=== PATIENT | female | born 1970 | race African-American/Black ===

== ENCOUNTER 2016-10-28 19:16 | Emergency (ER) | payer MEDICAID, OTHER ==
[~2016-10-28] VITALS: Ht 165.1 cm; Wt 63.5 kg
[2016-10-28 19:20] VITALS: BP 117/80
[2016-10-28 20:02] LABS: Basophils # (auto) 0 uL; Basophils % (auto) 0.2 % (0.0-2.0); CONDITION Y; DEFINITIVE SEE PRINTOUT; Eosinophils # (auto) 0 uL; Eosinophils % (auto) 0.3 % (0.0-7.0); Hematocrit 21.7 % (36.0-46.0); Hemoglobin 7.4 g/dL (12.2-16.2); Lymphocytes % (auto) 22.1 % (10.0-50.0); Mean Corpuscular Hemoglobin 29.6 pg (28.0-32.0); Mean Corpuscular Volume 87.3 fL (80.0-100.0); Mean Platelet Volume 7.1 fL (7.4-10.4); Monocytes # (auto) 0.3 uL; Monocytes % (auto) 7.3 % (0.0-12.0); Neutrophils # (auto) 3.1 uL; Neutrophils % (auto) 70.1 % (37.0-80.0); Platelet Count (auto) 385 10^3/uL (140-450); Red Cell Distribution Width 18.8 % (11.6-16.0); White Blood Cell 4.4 10^3/uL (4.4-10.8)
[2016-10-28 20:25] LABS: Albumin 1.2 g/dL (3.4-5.0); BUN/Creatinine Ratio 24.1; Calcium 6.6 mg/dL (8.5-10.1); Potassium 3.9 mmol/L (3.5-5.1)
[2016-10-28 20:32] LABS: Bilirubin, Total 0.2 mg/dL (0.2-1.0); Total Protein 5.7 g/dL (6.4-8.2)
== END 2016-10-29 01:43 | disposition left against medical advice (07) ==
LOC: EDBD 19:16 → EDSEX 19:16 → ER 19:19
DX: R21 Rash and other nonspecific skin eruption (principal); Z53.21 Procedure and treatment not carried out due to patient leaving prior to being seen by health care provider
CPT/HCPCS: 36415; 80053; 83605; 85025; 87040

== ENCOUNTER 2016-11-09 16:12 | Emergency (ER) | payer OTHER ==
[~2016-11-09] VITALS: Ht 170.2 cm; Wt 63.5 kg
[2016-11-09 16:30] VITALS: BP 120/77
== END 2016-11-10 05:57 | disposition left against medical advice (07) ==
LOC: ER 16:12 → EDBD 16:12 → ER 11-10 05:57
DX: R10.32 Left lower quadrant pain (principal); Z53.21 Procedure and treatment not carried out due to patient leaving prior to being seen by health care provider

== ENCOUNTER 2016-11-11 13:39 | Emergency (ER) | payer OTHER ==
[~2016-11-11] VITALS: Ht 167.6 cm; Wt 63.5 kg
[2016-11-11 14:47] VITALS: BP 127/74
[2016-11-11] MEDS ORDERED: cefTRIAXone SOD 1,000 MG VL IM ONE (15:00)
== END 2016-11-11 15:20 | disposition home or self-care (01) ==
LOC: ER 13:41
DX: B37.9 Candidiasis, unspecified (principal); B99.8 Other infectious disease; Z88.6 Allergy status to analgesic agent
CPT/HCPCS: 96372; 99283; J0696

== ENCOUNTER 2017-07-21 21:33 | Emergency (ER) | payer MEDICAID, OTHER ==
[~2017-07-21] VITALS: Ht 167.6 cm; Wt 63.5 kg
[2017-07-21 21:40] VITALS: BP 155/93
[2017-07-21 22:39] LABS: Hematocrit 14.9 % (36.0-46.0); Mean Corpuscular Hemoglobin 38.1 pg (28.0-32.0); Mean Corpuscular Hgb Conc. 33.6 g/dL (32.0-36.0); Mean Corpuscular Volume 113.2 fL (80.0-100.0); Platelet Count (auto) 183 10^3/uL (140-450); Red Blood Cells 1.32 10^6/uL (4.0-5.20); White Blood Cell 7.5 10^3/uL (4.4-10.8)
[2017-07-21 22:43] LABS: Red Cell Distribution Width 27.8 % (11.8-14.3)
[2017-07-21 22:47] LABS: Alanine Aminotransferase 15 U/L (13-56); Albumin 1.2 g/dL (3.4-5.0); Amylase 89 U/L (25-115); Anion Gap 6 (5-15); Aspartate Aminotransferase 21 U/L (15-37); BUN/Creatinine Ratio 21.2; Blood Urea Nitrogen 31 mg/dL (7-18); Calcium 6.9 mg/dL (8.5-10.1); Carbon Dioxide 24 mmol/L (21-32); Chloride 111 mmol/L (98-107); GFR African American 50 mL/min; GFR Non-African American 41 mL/min; Glucose 96 mg/dL (74-106); Lipase 147 U/L (73-393); Sodium 141 mmol/L (136-145)
[2017-07-21 22:49] LABS: Basophils % (manual) 0 (0.0-2.0); Blast Cells 0; Metamyelocytes % 0; Myelocytes % 0; Promyelocytes % 0; Reactive Lymphocytes 0
[2017-07-21 22:50] LABS: Acetaminophen 4.6 ug/mL (10-30); Alkaline Phosphatase 76 U/L (45-117); Bilirubin, Total 0.4 mg/dL (0.2-1.0); Salicylate < 1.7 mg/dL (2.8-20.0); Total Protein 5.4 g/dL (6.4-8.2)
[2017-07-21 23:27] LABS: Band Neutrophils % (manual) 4; Eosinophils % (manual) 2 (0-7); Lymphocytes % (manual) 22 (10.0-50.0); Monocytes % (manual) 4 (0-12)
[2017-07-22 00:21] LABS: Urine Bacteria FEW /hpf (None Seen); Urine Blood 2+ /uL (Negative); Urine Specific Gravity 1.012 (1.001-1.035); Urine WBC 9 /hpf (0 - 5)
[2017-07-22 00:33] LABS: Alcohol, Urine < 3.0 mg/dL (0-5); Amphetamine Screen, Urine NEGATIVE (NEGATIVE); Barbiturate Scree,Urine NEGATIVE (NEGATIVE); Benzodiazephine Screen, Urine NEGATIVE (NEGATIVE); Cannabinoid Screen, Urine NEGATIVE (NEGATIVE); Cocaine Screen, Urine NEGATIVE (NEGATIVE); Opiate Scree,Urine NEGATIVE (NEGATIVE); Phencyclidine Screen, Urine NEGATIVE (NEGATIVE)
== END 2017-07-22 00:42 | disposition home or self-care (01) ==
LOC: EDBD 21:33 → ER 21:34
DX: F20.9 Schizophrenia, unspecified (principal); F10.10 Alcohol abuse, uncomplicated
CPT/HCPCS: 36415; 80053; 80307; 80329; 81001; 82150; 83690; 84484; 84702; 85007; 85027

== ENCOUNTER 2017-08-23 16:51 | Emergency (ER) | payer MEDICAID ==
[~2017-08-23] VITALS: Ht 167.6 cm; Wt 65.8 kg
[2017-08-23 21:41] VITALS: BP 122/56
[2017-08-23 22:05] LABS: Hematocrit 7.9 % (36.0-46.0); Mean Corpuscular Hemoglobin 45.5 pg (28.0-32.0); Mean Corpuscular Hgb Conc. 35.2 g/dL (32.0-36.0); Mean Corpuscular Volume 129.2 fL (80.0-100.0); Platelet Count (auto) 193 10^3/uL (140-450); Red Blood Cells 0.61 10^6/uL (4.0-5.20); White Blood Cell 10.4 10^3/uL (4.4-10.8)
[2017-08-23 22:17] LABS: Albumin 1.4 g/dL (3.4-5.0); BUN/Creatinine Ratio 20.3; Calcium 6.9 mg/dL (8.5-10.1); Potassium 4.4 mmol/L (3.5-5.1)
[2017-08-23 22:28] LABS: Hemoglobin 2.8 g/dL (12.2-16.2); Red Cell Distribution Width 31.3 % (11.8-14.3)
[2017-08-23 22:29] LABS: Blast Cells 0; Promyelocytes % 0; Reactive Lymphocytes 0
[2017-08-23 23:53] LABS: Band Neutrophils % (manual) 8; Basophils % (manual) 1 (0.0-2.0); Eosinophils % (manual) 3 (0-7); Lymphocytes % (manual) 19 (10.0-50.0); Metamyelocytes % 4; Monocytes % (manual) 5 (0-12); Myelocytes % 6
== END 2017-08-23 23:17 | disposition home or self-care (01) ==
LOC: ER 16:55
DX: D64.9 Anemia, unspecified (principal); R11.2 Nausea with vomiting, unspecified; Z88.8 Allergy status to other drugs, medicaments and biological substances
CPT/HCPCS: 36415; 74176; 80053; 83690; 85007; 85027

== ENCOUNTER 2017-08-24 05:49 | Emergency (ER) | payer MEDICAID ==
[~2017-08-24] VITALS: Ht 167.6 cm; Wt 68.0 kg
[2017-08-24 06:05] VITALS: BP 115/52
== END 2017-08-24 06:23 | disposition left against medical advice (07) ==
LOC: ER 05:51
DX: D64.9 Anemia, unspecified (principal); Z53.21 Procedure and treatment not carried out due to patient leaving prior to being seen by health care provider

== ENCOUNTER 2017-09-30 07:49 | Emergency (ER) | payer MEDICAID ==
[~2017-09-30] VITALS: Ht 165.1 cm; Wt 68.0 kg
[2017-09-30 08:14] VITALS: BP 150/88
[2017-09-30] MEDS ORDERED: SODIUM CHLORIDE 0.9% 1,000 ML IV ONE (08:47)
[2017-09-30] MEDS ORDERED: SODIUM CHLORIDE 0.9% 1,000 ML IVB ONE (08:47)
[2017-09-30] MEDS ORDERED: ONDANSETRON HCL 4 MG/2 ML VIAL IV ONE (09:00)
== END 2017-09-30 10:31 | disposition left against medical advice (07) ==
LOC: EDBD 07:49 → ER 07:49
DX: R11.2 Nausea with vomiting, unspecified (principal); F17.210 Nicotine dependence, cigarettes, uncomplicated; F15.10 Other stimulant abuse, uncomplicated; Z59.0 Homelessness; Z88.8 Allergy status to other drugs, medicaments and biological substances; Z53.29 Procedure and treatment not carried out because of patient's decision for other reasons

== ENCOUNTER 2017-10-01 03:33 | Inpatient (IN) | payer MEDICAID ==
[~2017-10-01] VITALS: Ht 165.1 cm; Wt 74.1 kg
[2017-10-01 06:44] LABS: Hematocrit 13.3 % (36.0-46.0); Mean Corpuscular Hemoglobin 40.1 pg (28.0-32.0); Mean Corpuscular Hgb Conc. 34.6 g/dL (32.0-36.0); Mean Corpuscular Volume 116.1 fL (80.0-100.0); Platelet Count (auto) 123 10^3/uL (140-450); Red Blood Cells 1.14 10^6/uL (4.0-5.20); White Blood Cell 9.7 10^3/uL (4.4-10.8)
[2017-10-01 06:46] LABS: Red Cell Distribution Width 25.4 % (11.8-14.3)
[2017-10-01 06:49] LABS: Hemoglobin 4.6 g/dL (12.2-16.2)
[2017-10-01 06:50] LABS: Basophils % (manual) 0 (0.0-2.0); Blast Cells 0; Metamyelocytes % 0; Myelocytes % 0; Promyelocytes % 0; Reactive Lymphocytes 0
[2017-10-01 07:20] LABS: Albumin 1.3 g/dL (3.4-5.0); Bilirubin, Total 1.4 mg/dL (0.2-1.0); Calcium 7.3 mg/dL (8.5-10.1); Potassium 4.2 mmol/L (3.5-5.1); Total Protein 5.6 g/dL (6.4-8.2)
[2017-10-01 07:29] LABS: Band Neutrophils % (manual) 3; Eosinophils % (manual) 2 (0-7); Lymphocytes % (manual) 14 (10.0-50.0); Monocytes % (manual) 14 (0-12)
[2017-10-01] MEDS ORDERED: SODIUM CHLORIDE 0.9% 1,000 ML IV ONE (07:31)
[2017-10-01] MEDS ORDERED: ALBUMIN 25% 100 ML IV ONE (07:45)
[2017-10-01 08:42] LABS: Urine Bacteria NONE SEEN /hpf (None Seen); Urine Blood 2+ /uL (Negative); Urine Specific Gravity 1.012 (1.001-1.035); Urine WBC 4 /hpf (0 - 5)
[2017-10-01 08:44] LABS: INR 1.08 (0.9-1.15); Partial Thromboplastin Time 25.8 sec (23.78-33.04); Prothrombin Time 11.5 sec (9.27-12.13)
[2017-10-01 08:58] LABS: Alcohol, Urine < 3.0 mg/dL (0-5); Amphetamine Screen, Urine NEGATIVE (NEGATIVE); Barbiturate Scree,Urine NEGATIVE (NEGATIVE); Benzodiazephine Screen, Urine NEGATIVE (NEGATIVE); Cannabinoid Screen, Urine NEGATIVE (NEGATIVE); Cocaine Screen, Urine NEGATIVE (NEGATIVE); Opiate Scree,Urine NEGATIVE (NEGATIVE); Phencyclidine Screen, Urine NEGATIVE (NEGATIVE)
[2017-10-01] MEDS ORDERED: POTASSIUM CHL 10 Meq TABLET PO ONE (13:00)
[2017-10-01] MEDS ORDERED: FUROSEMIDE 40 MG/4 ML VIAL IV ONE (13:00)
[2017-10-01] MEDS ORDERED: ACETAMINOPHEN 325 MG TAB PO PRN (13:15)
[2017-10-01] MEDS ORDERED: cefTRIAXone 1GM/10ml IVPUSH 10 ML IV ONE (13:15)
[2017-10-01] MEDS ORDERED: NITROGLYCERIN 0.4 MG SL TAB SL PRN (13:15)
[2017-10-01] MEDS ORDERED: VANCOMYCIN PER PHARMACY 0 MG IV SCH (13:15)
[2017-10-01] MEDS ORDERED: HYDROcodone-ACET 5/325MG TAB PO PRN (13:15)
[2017-10-01] MEDS ORDERED: TEMAZEPAM 15 MG CAP PO PRN (13:15)
[2017-10-01] MEDS ORDERED: ONDANSETRON HCL 4 MG/2 ML VIAL IV PRN (13:15)
[2017-10-01] MEDS ORDERED: MORPHINE SULF INJ 2 MG/ML SYRINGE 1ML IV PRN ×2 (13:15)
[2017-10-01] MEDS: SODIUM CHLORIDE 0.9% 1,000 ML IV SCH (15:30)
[2017-10-01] MEDS: VANCOMYCIN 1GM/250ML 250 ML IV SCH (15:30)
[2017-10-01 17:00] VITALS: BP 135/76
[2017-10-01] MEDS: BOOST PLUS 8 ounce PO SCH ×2 (18:00→22:00)
[2017-10-01 18:48] LABS: Hemoglobin 4.5 g/dL (12.2-16.2)
[2017-10-01 20:00] VITALS: BP 123/110
[2017-10-01 22:09] VITALS: BP_SYST 121; BP_SYST 123; BP_DIAS 71; BP_DIAS 72
[2017-10-02] VITALS (13 sets, daily range): BP systolic 120–156; BP diastolic 76–96
[2017-10-02] MEDS: SODIUM CHLORIDE 0.9% 1,000 ML IV SCH ×2 (05:46→22:56)
[2017-10-02 07:38] LABS: Basophils # (auto) 0.1 uL; Eosinophils # (auto) 0.1 uL; Neutrophils # (auto) 8.9 uL; White Blood Cell 11.5 10^3/uL (4.4-10.8)
[2017-10-02 07:39] LABS: Basophils % (auto) 0.8 % (0.0-2.0); Eosinophils % (auto) 0.7 % (0.0-7.0); Hematocrit 12.1 % (36.0-46.0); Lymphocytes # (auto) 1.7 uL; Lymphocytes % (auto) 14.6 % (10.0-50.0); Mean Corpuscular Hemoglobin 39.5 pg (28.0-32.0); Mean Corpuscular Volume 119.7 fL (80.0-100.0); Monocytes # (auto) 0.8 uL; Monocytes % (auto) 6.8 % (0.0-12.0); Neutrophils % (auto) 77.1 % (37.0-80.0); Nucleated Red Blood Cells % 1.3 %; Platelet Count (auto) 134 10^3/uL (140-450); Red Blood Cells 1.01 10^6/uL (4.0-5.20)
[2017-10-02 07:52] LABS: Red Cell Distribution Width 25.5 % (11.8-14.3)
[2017-10-02] MEDS: BOOST PLUS 8 ounce PO SCH ×4 (08:00→22:55)
[2017-10-02 08:09] LABS: Albumin 1.4 g/dL (3.4-5.0); BUN/Creatinine Ratio 29.5; Bilirubin, Total 1.1 mg/dL (0.2-1.0); Calcium 7.1 mg/dL (8.5-10.1); Potassium 4.6 mmol/L (3.5-5.1); Total Protein 5.4 g/dL (6.4-8.2)
[2017-10-02] MEDS ORDERED: EPOETIN ALFA 10,000 UNIT/1 ML VIAL SC ONE (08:45)
[2017-10-02] MEDS ORDERED: cefTRIAXone 1GM/10ml IVPUSH 10 ML IV SCH (09:00)
[2017-10-02] MEDS: MAGNESIUM SULFATE 1GM/100ML 100 ML IV SCH ×2 (09:34→11:18)
[2017-10-02] MEDS: CARVEDILOL 3.125 MG TAB PO SCH ×2 (09:34→22:55)
[2017-10-02] MEDS: FUROSEMIDE 40 MG/4 ML VIAL IV SCH ×2 (09:46→18:25)
[2017-10-02] MEDS ORDERED: POTASSIUM CHL 10 Meq TABLET PO SCH (10:00)
[2017-10-02] MEDS ORDERED: THIAMINE 100mg/ml INJ (200mg/2ml VIAL) IV SCH (10:00)
[2017-10-02] MEDS ORDERED: FAMOTIDINE 20 MG TAB PO SCH (10:00)
[2017-10-02] MEDS ORDERED: risperiDONE 1 MG TAB PO SCH (10:00)
[2017-10-02] MEDS ORDERED: FUROSEMIDE 40 MG/4 ML VIAL IV SCH (10:00)
[2017-10-02] MEDS ORDERED: MULTIPLE VITAMIN TAB PO SCH (10:00)
[2017-10-02] MEDS: VANCOMYCIN 1GM/250ML 250 ML IV SCH (13:39)
[2017-10-02] MEDS: CYANOCOBALAMIN (B-12) 1000 MCG/1 ML VIAL SUBCUT ONE ×2 (15:00→15:21)
[2017-10-02] MEDS ORDERED: FOLIC ACID 1 MG TAB PO SCH (15:04)
[2017-10-03 01:10] VITALS: BP 147/87
[2017-10-03 01:20] VITALS: BP 151/85
[2017-10-03 04:15] VITALS: BP 143/86
[2017-10-03 04:54] VITALS: BP 143/86
[2017-10-03] MEDS: FUROSEMIDE 40 MG/4 ML VIAL IV SCH (06:00)
[2017-10-03] MEDS: BOOST PLUS 8 ounce PO SCH (06:00)
[2017-10-03 08:38] VITALS: BP 142/92
== END 2017-10-03 09:15 | disposition left against medical advice (07) | DRG 194 ==
LOC: ER 03:33 → EDBD 03:33 → TELE 03:34 → TELE-CENTR 15:07
PROVIDERS: ADMIT Internal Medicine; ATTEND Internal Medicine
PROC: 30233N1 Transfusion of Nonautologous Red Blood Cells into Peripheral Vein, Percutaneous Approach (ICD-10-PCS; principal; 2017-10-02)
DX: I50.43 Acute on chronic combined systolic (congestive) and diastolic (congestive) heart failure (principal); E43 Unspecified severe protein-calorie malnutrition; D69.6 Thrombocytopenia, unspecified; I31.3 Pericardial effusion (noninflammatory); N13.1 Hydronephrosis with ureteral stricture, not elsewhere classified; E83.51 Hypocalcemia; N18.3 Chronic kidney disease, stage 3 (moderate); F20.9 Schizophrenia, unspecified; J98.11 Atelectasis; K80.20 Calculus of gallbladder without cholecystitis without obstruction; D75.89 Other specified diseases of blood and blood-forming organs; D64.9 Anemia, unspecified; R79.89 Other specified abnormal findings of blood chemistry; R19.7 Diarrhea, unspecified; E03.9 Hypothyroidism, unspecified; F12.90 Cannabis use, unspecified, uncomplicated; F17.210 Nicotine dependence, cigarettes, uncomplicated; N32.89 Other specified disorders of bladder; R32 Unspecified urinary incontinence; R31.29 Other microscopic hematuria; Z53.29 Procedure and treatment not carried out because of patient's decision for other reasons; Z53.21 Procedure and treatment not carried out due to patient leaving prior to being seen by health care provider; Z59.0 Homelessness; Z91.19 Patient's noncompliance with other medical treatment and regimen; Z88.1 Allergy status to other antibiotic agents; Z86.14 Personal history of Methicillin resistant Staphylococcus aureus infection; Z68.27 Body mass index [BMI] 27.0-27.9, adult
CPT/HCPCS: 36415; 71045; 74176; 76775; 80053; 80307; 81001; 82150; 83021; 83605; 83690; 83735; 83880; 84443; 84484; 85007; 85014; 85018; 85025; 85027; 85610; 85660; 85730; 86850; 86870; 86880; 86900; 86901; 86920; 86922; 86970; 86971; 86978; 87040; 87081; 87086; 93306; 96374; 96375; J0885; P9047

== ENCOUNTER 2019-05-01 20:17 | Emergency (ER) | payer MEDICAID ==
[~2019-05-01] VITALS: Ht 167.6 cm; Wt 72.6 kg
[~2019-05-01 20:17] MED LIST: AML5T PO; HYDR-2691 PO; MET25T PO
[2019-05-01] MEDS ORDERED: SODIUM CHLORIDE 0.9% 1,000 ML IVB ONE (21:11)
[2019-05-01] MEDS ORDERED: LORazepam 2MG/ML-1ML VIAL IM ONE (21:15)
[2019-05-01] MEDS ORDERED: ONDANSETRON ODT 4 MG TAB PO ONE (21:15)
[2019-05-01] MEDS ORDERED: ACETAMINOPHEN 325 MG TAB PO ONE (21:15)
[2019-05-01] MEDS ORDERED: LEVETIRACETAM INJ 1,000 MG in D5W 5% 100 ML IV ONE (23:00)
[2019-05-02 03:28] VITALS: BP 114/68
[2019-05-02] MEDS ORDERED: LEVETIRACETAM 500 MG TAB PO ONE ×2 (06:45→07:00)
== END 2019-05-02 07:02 | disposition home or self-care (01) ==
LOC: EDBD 20:17 → ER 20:19
DX: S00.531A Contusion of lip, initial encounter (principal); R56.9 Unspecified convulsions; I12.0 Hypertensive chronic kidney disease with stage 5 chronic kidney disease or end stage renal disease; N18.6 End stage renal disease; Z99.2 Dependence on renal dialysis; X58.XXXA Exposure to other specified factors, initial encounter; Y93.89 Activity, other specified; Y92.89 Other specified places as the place of occurrence of the external cause; Y99.8 Other external cause status
CPT/HCPCS: 70450; 71045; 96372; 99284; J1953; J2060; J7060; Q0162

== ENCOUNTER 2019-05-10 20:35 | Inpatient (IN) | payer MEDICAID ==
[~2019-05-10] VITALS: Ht 165.1 cm; Wt 59.1 kg
[2019-05-10 21:08] LABS: Basophils # (auto) 0 uL; Basophils % (auto) 0.7 % (0.0-2.0); Eosinophils # (auto) 0.2 uL; Eosinophils % (auto) 2.7 % (0.0-7.0); Hematocrit 27.5 % (36.0-46.0); Hemoglobin 9.2 g/dL (12.2-16.2); Lymphocytes # (auto) 1.7 uL; Mean Corpuscular Hemoglobin 29.4 pg (28.0-32.0); Mean Corpuscular Hgb Conc. 33.4 g/dL (32.0-36.0); Mean Corpuscular Volume 87.9 fL (80.0-100.0); Monocytes # (auto) 0.4 uL; Monocytes % (auto) 6.6 % (0.0-12.0); Neutrophils # (auto) 3.9 uL; Nucleated Red Blood Cells % 0.1 %; Platelet Count (auto) 250 10^3/uL (140-450); Red Blood Cells 3.13 10^6/uL (4.0-5.20); Red Cell Distribution Width 15.9 % (11.8-14.3); White Blood Cell 6.2 10^3/uL (4.4-10.8)
[2019-05-10 21:30] LABS: Albumin 2.8 g/dL (3.4-5.0); Calcium 7.1 mg/dL (8.5-10.1); Potassium 5.4 mmol/L (3.5-5.1)
[2019-05-10 21:35] LABS: BUN/Creatinine Ratio 7.7; Bilirubin, Total 0.4 mg/dL (0.2-1.0); Total Protein 8.2 g/dL (6.4-8.2)
[2019-05-11] MEDS ORDERED: QUEtiapine FUMARATE 100 MG TAB PO ONE (04:15)
[2019-05-11] MEDS ORDERED: cloNIDine HCL 0.1 MG TAB PO ONE (04:45)
[2019-05-11] MEDS ORDERED: ENOXAPARIN SOD 100 MG/1 ML SYRINGE SC ONE (06:15)
[2019-05-11] MEDS ORDERED: TEMAZEPAM 15 MG CAP PO PRN (06:15)
[2019-05-11] MEDS ORDERED: SODIUM ZIRCONIUM CYCL 10 GM PAK PO ONE (06:15)
[2019-05-11] MEDS ORDERED: ONDANSETRON HCL 4 MG/2 ML VIAL IV PRN (06:15)
[2019-05-11] MEDS ORDERED: MORPHINE SULF INJ 2 MG/ML SYRINGE 1ML IV PRN (06:45)
[2019-05-11] MEDS ORDERED: NITROGLYCERIN 0.4 MG SL TAB SL PRN (06:45)
--- NOTE | 2019-05-11 07:54 | NUR ---
Telemetry admit from ER ROBE VALLADARES admitted to Telemetry unit after SBAR received. Patient oriented to OSCAR CASTILLO RN primary RN, unit, room, bed, and unit policies regarding patient care and visiting hours. Patient now on continuous telemetry monitoring, tele box #[id number]. Patient weighed by bedscale and encouraged to call if they need something. All questions and concerns addressed, patient refuses to answer questions of acknowledge RN.
[2019-05-11 08:59] VITALS: BP 153/102
--- NOTE | 2019-05-11 09:20 | NUR ---
Refusing Admission Patient has been refusing to answer questions or allow assessment. Patient will not keep eyes open. When eyes are open, patient will not respond to questions.
--- NOTE | 2019-05-11 09:30 | NUR ---
Refusing Assessment Refusing assessment at this time. Attempted to educate patient. Patient refuses to acknowledge education. Keeping eyes closed.
[2019-05-11] MEDS ORDERED: SODIUM CHL 0.9% 1000 ML BAG XX ONE (10:00)
[2019-05-11] MEDS ORDERED: amLODIPine BESYLATE 5 MG TAB PO SCH (10:00)
[2019-05-11] MEDS ORDERED: NIFEdipine ER 30 MG TAB PO SCH (10:00)
[2019-05-11] MEDS ORDERED: PANTOPRAZOLE 40 MG TAB PO SCH (10:00)
[2019-05-11] MEDS ORDERED: ASPirin 81 mg TAB PO SCH (10:00)
--- NOTE | 2019-05-11 10:00 | NUR ---
Refusing IV access Informed patient that IV access needs to be obtained in order to administer medications and in case of emergency. Patient refuses to let this RN obtain IV access.
--- NOTE | 2019-05-11 10:05 | NUR ---
Reassessment of Blood Pressure Patient's blood pressure was high during initial assessment vitals. Reassessment blood pressure at this time. Blood pressure is currently 165/100, with a pulse of 84. Patient is currently resting in bed with eyes closed. Notified dialysis nurse of patient's blood pressure. Nurse is aware and will start dialysis within the next hour to hour and a half.
--- NOTE | 2019-05-11 11:42 | NUR ---
Refusing MRSA swab Patient will not allow this RN to swab for MRSA at this time.
[2019-05-11] MEDS: CALCIUM ACETATE 667 MG CAP PO SCH ×3 (12:00→18:00)
[2019-05-11 13:00] VITALS: BP 166/123
--- NOTE | 2019-05-11 15:00 | NUR ---
Dialysis Complete Notified by EL Alfaro, that was covering for lunch that patient ended dialysis early. Per EL Alfaro, Dialysis was able to remove 2.4L before patient began to complain and requesting that dialysis be stopped.
[2019-05-11] MEDS: hydrALAZINE HCL 25 MG TAB PO SCH ×2 (15:50→21:14)
[2019-05-11] MEDS: METOPROLOL TARTRATE 25 MG TAB PO SCH ×2 (15:54→21:14)
--- NOTE | 2019-05-11 16:00 | NUR ---
Cardiology Consult Dr. Quinones at bedside at this time see patient. Patient has refused echocardiogram and placement of IVs for stress test. Dr. Quinones at this time has cleared patient for discharge from a cardiac standpoint. Patient will need to follow up as an outpatient.
[2019-05-11 17:00] VITALS: BP 176/117
--- NOTE | 2019-05-11 17:45 | NUR ---
Refusing Tele Monitor Patient has been refusing to wear tele monitor for approximately the last hour. Tele monitor techs aware.
--- NOTE | 2019-05-11 18:21 | NUR ---
Page to Dr. Giselle Munoz Page to Dr. Giselle Munoz. Patient is upset. Patient is calling 911 on her bedside phone. Patient states, "You're trying to set me up. You didn't think I would wake up, huh?" Gave patient some crackers at this time in hopes to calm her down. Awaiting callback from Dr. Munoz.
--- NOTE | 2019-05-11 18:49 | NUR ---
Call from Dr. Munoz Call from Dr. Munoz at this time. Patient now has diet ordered. aware of high blood pressure. to come in and see patient soon.
--- NOTE | 2019-05-11 19:15 | NUR ---
Telepsych Telepsych report placed in chart.
--- NOTE | 2019-05-11 19:33 | NUR ---
Closing Shift Note Patient sitting up in bed eating late dinner tray. No distress noted. Report given. Will endorse care to the steward/stewardess night RN.
--- NOTE | 2019-05-11 19:49 | NUR ---
Received patient lying in bed, eyes closed. When patient asked that her blood pressure needs to be checked patient just refused, tried to ask again but patient adamantly refused. Left patient in bed, call bird with in reach, bed in low position.
[2019-05-11] MEDS ORDERED: EPOETIN ALFA 10,000 UNIT/1 ML VIAL SC ONE (21:00)
[2019-05-11] MEDS ORDERED: AMLO5TAB15 (21:15)
[2019-05-11] MEDS ORDERED: amLODIPine BESYLATE 5 MG TAB PO ONE (21:15)
[2019-05-11 21:49] VITALS: BP 178/103
[2019-05-11] MEDS: risperiDONE 1 MG TAB PO SCH (22:03)
--- NOTE | 2019-05-11 22:04 | NUR ---
PATIENT REFUSED MEDICATIONS. DR. PITTS NOTIFIED. CALLED PATIENT'S SON ANTIONETTE AND NOTIFIED OF PATIENT'S BEHAVIOR REFUSING MEDICATIONS. PATIENT SPOKE WITH SON FOR A FEW MINUTES. MEDICATIONS OFFERED AFTER BUT PATIENT SAID "NO". AFTER 30 MINUTES PATIENT IS ASKING FOR MEDICATION FOR EAR ACHE, GIVEN ALL PO MEDICATIONS INCLUDING PREVIOUSLY REFUSED MEDS AND SHE JUST TOOK THEM ALL.
--- NOTE | 2019-05-11 22:25 | NUR ---
PATIENT C/O SOB AND EARACHE, EXPLAINED THE MEDICATIONS WILL TAKE TIME TO TAKE EFFECT. 02 2L VIA N/C APPLIED, PATIENT TRYING TO REFUSED BUT APPLIED DUE TO C/O OF SOB. LEFT LYING IN BED WITH 02 VIA N/C IN PLACE.
--- NOTE | 2019-05-11 22:25 | NUR ---
PATIENT REFUSED BLOOD DRAW.
--- NOTE | 2019-05-11 22:37 | NUR ---
ACETAMINOPHEN GIVEN FOR EARACHE, PATIENT TOOK MEDICATION.
[2019-05-11] MEDS: ACETAMINOPHEN 325 MG TAB PO PRN (22:39)
[2019-05-12] MEDS: hydrALAZINE HCL 25 MG TAB PO SCH ×4 (06:00→22:00)
--- NOTE | 2019-05-12 06:54 | NUR ---
PATIENT CONTINUES TO REFUSE BLOOD DRAW, VITAL SIGNS AND MEDICATIONS. DIFFICULT TO MANAGE.
--- NOTE | 2019-05-12 07:30 | NUR ---
Opening Shift Note Assuming care of patient at this time. Patient is resting in bed with eyes closed. Patient shows no signs or symptoms of distress. Patient currently receiving 2L of oxygen via nasal cannula. Bed is locked and lowered with side rails up x2. Will instruct patient on the plan of care for today and to call for assistance as needed, once patient is awake and alert. Call light within reach. Will continue to round hourly and as needed.
[2019-05-12] MEDS: CALCIUM ACETATE 667 MG CAP PO SCH ×3 (08:00→17:51)
--- NOTE | 2019-05-12 08:11 | NUR ---
Refusing Vital Signs Patient has refused vital signs. After education on the need to reassess patient, patient states, "leave me alone."
[2019-05-12] MEDS: METOPROLOL TARTRATE 25 MG TAB PO SCH ×2 (10:00→22:00)
[2019-05-12] MEDS: ASPirin 81 mg TAB PO SCH (10:00)
[2019-05-12] MEDS: PANTOPRAZOLE 40 MG/10 ML VIAL INJ IV SCH (10:00)
[2019-05-12] MEDS: amLODIPine BESYLATE 5 MG TAB PO SCH (10:00)
--- NOTE | 2019-05-12 10:33 | NUR ---
Patient in Hallway Informed by CANDIS Leyva RN, that was patient was screaming in the hallway saying she was short of breath. Gordon RN, put oxygen on patient at that time. When this RN entered the room, patient states she is feeling better with the oxygen on. However, patient complained that she has been feeling short of breath for most of the night. Asked patient at this time if we can assess her vitals. Patient replies, "No." Informed patient that we cannot give her medication or treat her without assessing her vitals signs. Patient replies, "I don't want any medication." Informed patient that she will not feel better and her health will no improve without the appropriate treatment and medications. Then asked patient if this RN can assess her vitals. Patient pauses with no reply. Asked patient if she was thinking about it. Patient replies, "Yeah." Asked patient again if we can check her vitals signs. Patient responds, "yeah." Will check vitals signs and administer medication if patient continues to be cooperative with care.
--- NOTE | 2019-05-12 12:45 | NUR ---
Refusing Medications Patient is continuing to refuse medications at this time despite education. Patient continuous to be resistive to care and apprehensive towards treatment.
[2019-05-12] MEDS: risperiDONE 1 MG TAB PO SCH ×2 (13:04→22:00)
--- NOTE | 2019-05-12 15:20 | NUR ---
Call light Answered patient's call light at this time. Patient is requesting to have double lumen dialysis catheter removed. Informed patient that the catheter is her access for dialysis. Patient states, "No it's not." Informed patient that the access was used for yesterday's dialysis. Patient states, "I didn't have dialysis yesterday." Informed patient that she did in fact have dialysis yesterday. Patient states, "I don't get dialysis. I've never had dialysis." Patient then asked to speak with her son. Will attempt to contact Antoni son.
--- NOTE | 2019-05-12 15:39 | NUR ---
Call to Son This RN called son, Antoni, at this time per patient's request to speak with him. Transferred the call to the patient's room. Patient overheard saying, "They set me up at the hospital."
--- NOTE | 2019-05-12 17:00 | NUR ---
Patient Behavior Patient has been continuing to scream out to the hallway whenever someone passes by. Patient has been frequently requesting and receiving apple juices. Patient is also requesting cheeseburgers and double cheeseburgers, which are not available at this time.
--- NOTE | 2019-05-12 17:30 | NUR ---
Security Call/Patient's Behavior Patient was screaming for a nurse in the hallway. This RN entered the room. Patient states, she needs to use the bathroom. Oriented patient to bathroom located in her room that she has been independently using. Patient states that she needs help to get to the bathroom. Asked patient to put down telephone and cord so that this RN could assist her to bathroom. Patient states that she has to take the cord with her. Informed patient that she could not take phone cord with her due to phone being attached to wall. Patient begins to hold phone in an upward motion, in an attempt to strike this RN. Patient states, "Here. Take it!" Asked patient to place phone on the bed. Patient throws phone on bed and begins walking towards this RN. Patient is now in this RN's face and walking towards her as this RN is walking backwards to exit room. Now in hallway, patient continues to walk in this RN's face, and states, "You scared?" Informed patient that the bathroom is in the room and patient turns around and goes into the room. At this time security was called due to patient's threatening behavior. Patient walks into bathroom briefly, turns sink on and off, and goes back to the bed in the room. Patient then puts on jacket and shoes. Patient then begins to exit room. Asked patient where she was going and she replied, "Home." Asked patient how she planned on getting home, and she replied, "Can you call a cab? " Asked patient to step back into her room. Patient turns around and sits on bed. Security arrives and is informed of the situation. Call to charge rn at this time to notify of need for sitter. Security remains standby for safety.
--- NOTE | 2019-05-12 19:14 | NUR ---
Closing Note Patient sitting on bed. No distress noted. Sitter at bedside for safety. Report given. Will endorse care to the shift engineer RN.
--- NOTE | 2019-05-12 20:13 | NUR ---
PATIENT WANTS TO LEAVE. DR. PITTS TALKED TO PATIENT. PATIENT SPOKE WITH SON. PATIENT STILL CONTINUES TO REFUSE MEDICATIONS AND ANY OTHER TREATMENT. NEW ORDER RECEIVED FOR TELE PSYCH EVAL FOR CAPACITY TO MAKE DECISIONS.
[2019-05-13] MEDS: ACETAMINOPHEN 325 MG TAB PO PRN (04:15)
[2019-05-13] MEDS: hydrALAZINE HCL 25 MG TAB PO SCH ×3 (06:00→21:21)
[2019-05-13] MEDS: CALCIUM ACETATE 667 MG CAP PO SCH ×3 (08:00→18:00)
[2019-05-13] MEDS: PANTOPRAZOLE 40 MG/10 ML VIAL INJ IV SCH (10:00)
[2019-05-13] MEDS: ASPirin 81 mg TAB PO SCH (10:00)
[2019-05-13] MEDS: risperiDONE 1 MG TAB PO SCH ×2 (11:48→21:19)
[2019-05-13] MEDS: METOPROLOL TARTRATE 25 MG TAB PO SCH ×2 (11:53→21:21)
[2019-05-13] MEDS: amLODIPine BESYLATE 5 MG TAB PO SCH (11:54)
[2019-05-13 13:00] VITALS: BP 188/112
--- NOTE | 2019-05-13 15:00 | NUR ---
ATTEMPTED TELE PSYCH. PT REFUSED TO COOPERATE. NEW REPORT RECEIVED STATING THAT PT IS NOT CAPABLE OF MAKING OWN DECISIONS. WILL UPDATE MD DURING ROUNDS.
[2019-05-13] MEDS ORDERED: SODIUM CHL 0.9% 1000 ML BAG XX ONE (16:00)
[2019-05-13 17:00] VITALS: BP 168/110
--- NOTE | 2019-05-13 18:00 | NUR ---
PT REFUSED LAB DRAWS THROUGHOUT SHIFT
--- NOTE | 2019-05-13 18:30 | NUR ---
PT REFUSED DIALYSIS TREATMENT.
--- NOTE | 2019-05-13 20:19 | NUR ---
RECEIVED PATIENT RESTING IN BED, EYES CLOSED, NO S/SX OF DISTRESS NOTED. SITTER AT BEDSIDE. CALL WILD WITH IN REACH. BED IN LOW POSITION.
[2019-05-13] MEDS ORDERED: LORazepam 2MG/ML-1ML VIAL IM ONE (21:00)
[2019-05-13] MEDS ORDERED: hydrALAZINE HCL 20 MG/ML VL IV PRN (21:00)
[2019-05-13] MEDS ORDERED: EPOETIN ALFA 10,000 UNIT/1 ML VIAL SC ONE (21:00)
[2019-05-13] MEDS ORDERED: diphenhdrAMINE HCL 50 MG/1 ML VL IM ONE (21:00)
[2019-05-13 22:24] LABS: Basophils # (auto) 0 uL; Eosinophils # (auto) 0.1 uL; Eosinophils % (auto) 2.2 % (0.0-7.0); Hematocrit 23.2 % (36.0-46.0); Hemoglobin 7.9 g/dL (12.2-16.2); Lymphocytes # (auto) 1.2 uL; Lymphocytes % (auto) 24.1 % (10.0-50.0); Mean Corpuscular Hemoglobin 29.9 pg (28.0-32.0); Mean Corpuscular Volume 87.9 fL (80.0-100.0); Monocytes # (auto) 0.5 uL; Monocytes % (auto) 10.7 % (0.0-12.0); Platelet Count (auto) 192 10^3/uL (140-450); Red Blood Cells 2.64 10^6/uL (4.0-5.20); Red Cell Distribution Width 15.8 % (11.8-14.3); White Blood Cell 4.8 10^3/uL (4.4-10.8)
[2019-05-13 22:49] LABS: Potassium 7.6 mmol/L (3.5-5.1)
[2019-05-13] MEDS ORDERED: ALBUTEROL SULF 2.5 MG/0.5ML(0.5%) NEB SOLN ONE (23:04)
--- NOTE | 2019-05-13 23:17 | NUR ---
CALLED [facility] TO REPORT ABNORMAL LABS.
[2019-05-14] VITALS (41 sets, daily range): BP systolic 93–187; BP diastolic 63–101
--- NOTE | 2019-05-14 00:30 | NUR ---
CALLED REPORT TO [facility] UTILITY SYSTEM OPERATOR.
--- NOTE | 2019-05-14 00:40 | NUR ---
TRANSFERRED TO ICU VIA GURNEY, TO UNIT AT 0040. PT ALERT AND ORIENTED X2. PUPILS REACTIVE, MOVES ALL EXTREMITIES, TALKING IN CLEAR TONE. RESPIRATIONS EVEN AND UNLABORED ON ROOM AIR, LUNG SOUNDS CLEAR/ DIMINISHED. ST ON SEPTIC CLEANER. BOWEL SOUNDS PRESENT. SKIN INTACT. BED IN LOWEST LOCKED POSITION. EDUCATED PT WET MILLING WHEEL OPERATOR LIGHT, VERBALIZED UNDERSTANDING. SITTER AT BEDSIDE. NO PAIN AT THIS TIME. WILL CONTINUE TO MONITOR VITAL SIGNS STABLE.
--- NOTE | 2019-05-14 00:45 | NUR ---
UNABLE TO PLACE IV ACCESS, PATIENT HARD STICK. WILL TRANSFER PATIENT TO ICU.
--- NOTE | 2019-05-14 00:46 | NUR ---
PATIENT TRANSFERRED TO ICU VIA BED WITH BELONGINGS. PATIENT NOW ALERT AND COOPERATIVE.
[2019-05-14] MEDS ORDERED: LORazepam 2MG/ML-1ML VIAL IV PRN (01:00)
[2019-05-14] MEDS ORDERED: CALCIUM GLUC 4.65meq/50ml D5AE 50 ML IV ONE (01:00)
[2019-05-14] MEDS ORDERED: InsuLIN REG 1unit/0.01ml Soln (100units/ml) IV ONE (01:00)
[2019-05-14] MEDS ORDERED: DEXTROSE (50%) 50ML SYRG IV ONE (01:00)
[2019-05-14] MEDS ORDERED: ALBUTEROL SULF 2.5 MG/0.5ML(0.5%) NEB SOLN NEB ONE ×2 (01:00→06:30)
--- NOTE | 2019-05-14 01:00 | NUR ---
IV INSERTION IV insertion IV access obtained, via sterile technique by inserting 20 gauge catheter at LEFT SHOULDER after 2 attempts. IV secured properly. No trauma to site. Patient tolerated procedure well. CARRYING OUT ORDERS FOR IV MEDICATIONS. VITAL SIGNS STABLE.
--- NOTE | 2019-05-14 02:38 | NUR ---
PT RESTING IN BED EYES CLOSED, VITAL SIGNS STABLE. STAFF MEMBER AT BEDSIDE. WILL CONTINUE TO MONITOR.
--- NOTE | 2019-05-14 04:35 | NUR ---
AGITATION PT CONFUSED AND AGITATED, TRYING TO SIT UP AT EDGE OF BED SAYING, "I NEED TO GRAB MY GROCERIES, IN MY APARTMENT." REORIENTED TO PLACE AND TIME. PT SITTING IN HIGH FOWLERS POSITION COMFORTABLY. BED IN LOWEST LOCKED POSITION, PT EDUCATED NOT TO GET OUT OF BED WITHOUT ASSISTANCE. FALL PRECAUTIONS AND SAFETY MEASURES IN PLACE. SITTER AT BEDSIDE. VITAL SIGNS STABLE. WILL CONTINUE TO MONITOR
--- NOTE | 2019-05-14 06:11 | NUR ---
NEURO STATUS PT ALERT AND ORIENTED TO PLACE AND SITUATION. ALLOWING BLOOD DRAW AND MEDICATIONS AT THIS TIME. PT CALM AND RELAXED IN BED, WATCHING TV. SAFETY PRECAUTIONS IN PLACE. VITAL SIGNS STABLE WILL CONTINUE TO MONITOR.
[2019-05-14 06:18] LABS: Basophils # (auto) 0 uL; Basophils % (auto) 0.8 % (0.0-2.0); Eosinophils # (auto) 0 uL; Eosinophils % (auto) 0.9 % (0.0-7.0); Hematocrit 25.8 % (36.0-46.0); Hemoglobin 8.6 g/dL (12.2-16.2); Lymphocytes # (auto) 0.4 uL; Lymphocytes % (auto) 10.8 % (10.0-50.0); Mean Corpuscular Hemoglobin 29.7 pg (28.0-32.0); Mean Corpuscular Hgb Conc. 33.1 g/dL (32.0-36.0); Mean Corpuscular Volume 89.6 fL (80.0-100.0); Monocytes # (auto) 0.2 uL; Monocytes % (auto) 5.6 % (0.0-12.0); Neutrophils # (auto) 3.4 uL; Neutrophils % (auto) 81.9 % (37.0-80.0); Platelet Count (auto) 171 10^3/uL (140-450); Red Blood Cells 2.88 10^6/uL (4.0-5.20); Red Cell Distribution Width 15.9 % (11.8-14.3); White Blood Cell 4.1 10^3/uL (4.4-10.8)
[2019-05-14] MEDS: hydrALAZINE HCL 25 MG TAB PO SCH ×3 (06:21→19:57)
[2019-05-14] MEDS ORDERED: SODIUM ZIRCONIUM CYCL 10 GM PAK PO ONE (06:30)
--- NOTE | 2019-05-14 06:30 | NUR ---
CALL FROM EQUIPMENT SERVICE ASSOCIATE EN ROUTE TO DO DIALYSIS. ETA 10 MIN.
[2019-05-14 06:50] LABS: BUN/Creatinine Ratio 8.2; Calcium 7.4 mg/dL (8.5-10.1)
--- NOTE | 2019-05-14 06:50 | NUR ---
FILENET ADMIN AT BEDSIDE
[2019-05-14 06:56] LABS: Potassium 7.1 mmol/L (3.5-5.1)
--- NOTE | 2019-05-14 07:00 | NUR ---
CALL FROM DR. COYLE UPDATED ON PT STATUS AND AWARE OF DIALYSIS NURSE AT BEDSIDE. NO NEW ORDERS AT THIS TIME.
--- NOTE | 2019-05-14 07:20 | NUR ---
REPORT REPORT RECEIVED FROM MASON RNNASIMA. BEDSIDE CHECK DONE. HEMODIALYSIS IN PROGRESS . CONTINUE TO MONITOR.
--- NOTE | 2019-05-14 07:20 | NUR ---
EDGAR WAS HELD BY MASON RN, PER REPORT, PT HAD RECENTLY RECEIVED A PO MED.
[2019-05-14] MEDS: CALCIUM ACETATE 667 MG CAP PO SCH ×3 (08:00→18:00)
--- NOTE | 2019-05-14 08:25 | NUR ---
ASSESSMENT PT LAYING IN BED , BUNDLED UP UNDER THE BLANKETS, ASLEEP. VSS. HEMODIALYSIS IN PROGRESS, STARTED AT 0710, PER HDX RN. LUNGS CLEAR THROUGHOUT. ABD SOFT WITH + BOWEL SOUNDS. NO VOID OR BM AT THIS TIME. PALPABLE PULSES TO ALL EXTREMITIES WITH NO EDEMA NOTED. UNABLE TO CHECK SKIN TO BACK AND BOTTOM WILL NOT TURN PT DURING HER HDX. CONTINUE TO MONITOR.
--- NOTE | 2019-05-14 08:25 | NUR ---
PT REFUSES TO WEAR SCDS Addendum: 05/14/19 at 1239 by Lucy Cordero RN Amended: Links added.
--- NOTE | 2019-05-14 08:30 | NUR ---
MD VISIT PT SEEN BY DR COYLE. HE SPOKE WITH THE HDX RN AT THE BEDSIDE. PT STABLE AT THIS TIME.
--- NOTE | 2019-05-14 08:30 | NUR ---
PT TEACHING PT ANNE KNOX FOR EFFECTIVE PT TEACHING. Addendum: 05/14/19 at 1541 by Lucy Cordero RN Amended: Links added.
--- NOTE | 2019-05-14 10:10 | NUR ---
HEMODIALYSIS COMPLETED AND 2 LITERS REMOVED. BP OF 93/65. SCHEDULED MEDS FOR NOW INCLUDING BP MEDS . WILL HOLD AT THIS TIME AND WILL ADMINISTER BP WARRANTS. PT STILL GROGGY. WILL NOT WEAR MASK FOR BREATHING TREATMENTS SO IT IS PROPPED UP NEXT TO HER FACE ON A PILLOW. CONTINUE TO MONITOR. WILL TURN SOON SHE IS DISCONNECTED FROM HDX MACHINE.
--- NOTE | 2019-05-14 10:30 | NUR ---
ATTEMPTED TO OBTAIN PT'S WEIGHT S/P HDX AND BED SCALE NOT FUNCTIONING PROPERLY. UNABLE TO OBTAIN AN ACCURATE WEIGHT.
--- NOTE | 2019-05-14 11:00 | NUR ---
PT ALLOWED US TO SCOOT HER UP IN BED BUT REFUSED ALL MEDS.
[2019-05-14] MEDS: ASPirin 81 mg TAB PO SCH ×2 (11:04→19:56)
[2019-05-14] MEDS: METOPROLOL TARTRATE 25 MG TAB PO SCH ×2 (11:04→19:57)
[2019-05-14] MEDS: PANTOPRAZOLE 40 MG/10 ML VIAL INJ IV SCH (11:04)
[2019-05-14] MEDS: risperiDONE 1 MG TAB PO SCH ×2 (11:05→19:57)
[2019-05-14] MEDS: amLODIPine BESYLATE 5 MG TAB PO SCH ×2 (11:05→19:56)
--- NOTE | 2019-05-14 11:22 | NUR ---
CALLED DR Ana Paula PITTS AND LEFT A MESSAGE INQUIRING CLARIFICATION OF HIGHER LEVEL OF CARE ORDER FOR ELSI, HISTORICAL MANUSCRIPTS CURATOR, AND ALSO IF PT CAN BE DOWNGRADED.
--- NOTE | 2019-05-14 11:58 | NUR ---
SPOKE WITH DR Ana Paula PITTS, BY PHONE, AND HE WANTS TO RECHECK THE PT'S CBC AND BMP BEFORE DECIDING ABOUT A DOWNGRADE. ORDERS PLACED. HE CLARIFIED THE TRANSFER FOR HIGHER LEVEL OF CARE ORDER STATING THAT THE PT NEEDS A FACILITY THAT OFFERS BOTH MEDICAL AND PSYCH CARE. CALLED ELSI LEONARD, FLOOR REFINISHER, TO NOTIFY. LEFT HER A VOICE MESSAGE.
--- NOTE | 2019-05-14 12:10 | NUR ---
PT REFUSING ASSESSMENT. Addendum: 05/14/19 at 1535 by Lucy Cordero RN Amended: Links added.
[2019-05-14 12:21] LABS: Basophils # (auto) 0 uL; Eosinophils # (auto) 0 uL; Lymphocytes # (auto) 0.9 uL; Monocytes # (auto) 0.2 uL
[2019-05-14 12:23] LABS: Basophils % (auto) 0.8 % (0.0-2.0); Eosinophils % (auto) 0.9 % (0.0-7.0); Hematocrit 25.4 % (36.0-46.0); Hemoglobin 8.1 g/dL (12.2-16.2); Lymphocytes % (auto) 28.8 % (10.0-50.0); Mean Corpuscular Hemoglobin 29.6 pg (28.0-32.0); Mean Corpuscular Hgb Conc. 31.7 g/dL (32.0-36.0); Mean Corpuscular Volume 93.2 fL (80.0-100.0); Monocytes % (auto) 6.3 % (0.0-12.0); Neutrophils % (auto) 63.2 % (37.0-80.0); Nucleated Red Blood Cells % 0.1 %; Platelet Count (auto) 191 10^3/uL (140-450); Red Blood Cells 2.73 10^6/uL (4.0-5.20); Red Cell Distribution Width 16.1 % (11.8-14.3); White Blood Cell 3.1 10^3/uL (4.4-10.8)
[2019-05-14 12:52] LABS: BUN/Creatinine Ratio 6.7; Calcium 7.7 mg/dL (8.5-10.1); Potassium 4.2 mmol/L (3.5-5.1)
--- NOTE | 2019-05-14 14:00 | NUR ---
PT REFUSES ASSESSMENT. Addendum: 05/14/19 at 1535 by Lucy Cordero RN Amended: Links added.
--- NOTE | 2019-05-14 14:30 | NUR ---
PT REFUSING TO WEAR BP CUFF.
--- NOTE | 2019-05-14 15:28 | NUR ---
Assessment and SS consult Pt is a 49 yr old alert and oriented but very drowsy female. SS consult given for "SW to assist with placement after d/c, pt needs assisted living with nursing suport per psychiatric recommendations. "[facility]. Pt's mother, Ashtyn, is emergency contact on file at [phone]. Pt stated that she is independent with ADL and no DME used.. SW has previously talked with pt's son, Antoni, who stated that pt has schizophrenia and has been refusing to take her medications and go to dialysis. Pt is a pt at [facility] and has medical transportation set up but pt refuses often to go with them. Pt's nurse stated that pt is currently refusing tx but did get dialysis here at the hospital. Pt's son has stated that he talks with his mom frequently to assist in medication and dialysis tx compliance but it hasn't been working recently. Further needs will be assessed closer to d/c. Addendum: 05/14/19 at 1537 by AISHA KUO Amended: Links added.
--- NOTE | 2019-05-14 16:19 | NUR ---
I spoke with Dr. Munoz regarding the plan of care for this patient and his request for transfer to higher level of care. Per Dr. Munoz he states patient needs to be placed in a facility that can address both her dialysis and psychiatric needs. I let him know that for psych placement patient needs 5150 application done. He is going to re-order tele psych consult. I also let him know that there are limited facilities that will accept a psych patient on dialysis.
--- NOTE | 2019-05-14 16:45 | NUR ---
PT MORE WAKE AND ALERT THAN SHE HAS BEEN ALL DAY. PT STATING SHE WANTS TO GO HOME. I LET HER KNOW THAT SHE IS MOVING OUT OF THE ICU TO A REGULAR ROOM AND WE ARE JUST WAITING FOR THE BED ASSIGNMENT. SHE WANTS TO TALK TO HER MD ABOUT GOING HOME. I DID LET HER KNOW THAT DR PITTS WILL BE COMING IN, BUT THAT I'M NOT SURE WHAT TIME. SHE STATES SHE IS HUNGRY. I WILL GET HER A SANDWICH. WENT TO TURN HER IN BED AND FOUND OUT THAT SHE HAD HAD A BM. PERICARE GIVEN AND PARTIAL LINEN CHANGE DONE. RAILS UP AND BED ALARM ON FOR PT SAFETY.
--- NOTE | 2019-05-14 17:09 | NUR ---
PT TO TRANSFER TO ROOM 275B. NURSE BUSY AND UNAVAILABLE FOR REPORT.
--- NOTE | 2019-05-14 17:26 | NUR ---
REPORT CALLED TO RECEIVING RN. PT HAS PULLED OUT HER IV. WILL SEE IF SHE WILL ALLOW ME TO PLACE ANOTHER ONE.
--- NOTE | 2019-05-14 17:50 | NUR ---
PT TRANSPORTED TO ROOM 275B AND ASSISTED INTO BED. PT STILL REFUSING TO WEAR TELEMETRY AND WILL NOT ALLOW ME TO START A NEW IV AFTER SHE PULLED OUT THE PREVIOUS ONE. RN AT BREAK AND SO MADE REFINING EQUIPMENT OPERATOR AND US AWARE OF PT'S ARRIVAL.
--- NOTE | 2019-05-14 18:11 | NUR ---
Med/Sug Patient arrived to the unit. Patient refused tele box and IV.
--- NOTE | 2019-05-14 19:30 | NUR ---
OPENING NOTE. ASSUMED CARE FOR PT. PT A/O X4. PT BEHAVIOR APPROPRIATE AT THIS TIME. RESPIRATIONS EVEN AND UNLABORED. LUNG SOUNDS CLEAR ON AUSCULTATION. PT ON ROOM AIR. SKIN DRY AND INTACT, AND SMALL BILATERAL SCAR NOTED ON LOWER BACK. BOWEL SOUNDS ACTIVE IN ALL 4 QUADS. BILATERAL PEDAL PULSES PALPATED AND [facility]. PT AMBULATES WITH STANDBY ASSIST TO BATHROOM AND TOLERATES WELL. PT DENIES PAIN, SOB AND CHEST PAIN. HANDOFF REPORT FROM EL PISANO, INCLUDED THAT PT HAD REFUSED IV INSERTION AND MEDS. DURING INITIAL CONTACT EL POOL AND DR. STEEN ESTABLISHED PLAN OF CARE IN WHICH PT UNDERSTOOD THE NEED FOR IV AND MEDS AND PT AGREED TO COMPLY. B/P ON ASSESS 166/97 EL POOL NOTIFIED. BED IN LOWEST LOCKED POSITION, BOTH UPPER BED RAILS RAISED. SAFETY PRECAUTIONS IN PLACE. WILL CONTINUE TO MONITOR.
--- NOTE | 2019-05-14 23:30 | NUR ---
TELE PYSCH CONSULTATION PSYCH COMPUTER SET UP IN FRONT OF PATIENT
--- NOTE | 2019-05-15 00:20 | NUR ---
TELE PSYCH IN PROCESS PT CURRENTLY COOPERATING, AND SPEAKING TO TELE PSYCH THROUGH TELE MONITOR. WILL WAIT FOR REPORT. Signed: 05/15/19 at 0037 by BELIA WARREN SN <Co-Signature Required> Co-Signed: 05/15/19 at 0037 by Kaia Loera RN
--- NOTE | 2019-05-15 04:51 | NUR ---
HTN PT B/P 160/96. PT CURRENTLY ASYMPTOMATIC. NO COMPLAINTS OF INGRAM, DIZZINESS, OR BLURRED VISION. PT ADVISED SHE NEEDS IV ACCESS WHILE ADMITTED. PT REFUSED. PT EDUCATED ON REASONING FOR IV ACCESS AND STILL REFUSED. WILL TRY AGAIN IN AN HOUR. Signed: 05/15/19 at 0453 by BELIA WARREN SN <Co-Signature Required> Co-Signed: 05/15/19 at 0453 by Kaia Loera RN
[2019-05-15 05:00] VITALS: BP 160/96
--- NOTE | 2019-05-15 05:33 | NUR ---
PT REFUSAL PT ASKED AGAIN IF WE COULD INITIATE IV ACCESS FOR HYDRALAZINE ADMINISTRATION. EDUCATION GIVEN ABOUT PT BLOOD PRESSURE AND THE RISKS ASSOCIATED/ACCOMPANIED BY HIGH BLOOD PRESSURE. PT CURRENTLY ASYMPTOMATIC. WILL PAGE DR. Ana Paula STEEN. Signed: 05/15/19 at 0541 by BELIA WARREN <Co-Signature Required> Co-Signed: 05/15/19 at 0541 by Kaia Loera RN
--- NOTE | 2019-05-15 05:41 | NUR ---
RETURNED DR MICHELLE RETURNED MD YEN STATES HE IS COVERING FOR DR Ana Paula STEEN MD MADE AWARE THAT PT CURRENTLY REFUSING IV ACCESS INSERTION TO ADMINISTER HYDRALAZINE IV FOR BP 160/96, STATES " JUST DOCUMENT", INFORMED PATIENT HAS MORNING ORAL ANTIHYPERTENSIVE MEDICATIONS SCHEDULED , ASKED IF DAYSHIFT RN CAN ADMINISTER EARLY, AGREES, WILL ENDORSE TO DAYSMILAGROS RN, CONT TO CLOSELY MONITOR PT
--- NOTE | 2019-05-15 06:53 | NUR ---
CLOSING NOTE PT RESTING WITH EYES CLOSED. RESPIRATIONS EVEN AND UNLABORED. PT ON ROOM AIR. A/OX4. PT HAS RICARDO CATH LEFT UPPER CHEST. ATTEMPTED TO PLACE IV CATHETER. PT REFUSED IV INITIATION. DR. MICHELLE NOTIFIED. SAFETY PRECAUTIONS IN PLACE. BED IN LOWEST LOCKED POSITION. WILL CONT TO MONITOR. Signed: 05/15/19 at 0657 by BELIA WARREN <Co-Signature Required> Co-Signed: 05/15/19 at 57 by Kaia Loera RN
[2019-05-15] MEDS ORDERED: SODIUM CHL 0.9% 1000 ML BAG XX ONE (08:45)
[2019-05-15] MEDS: CALCIUM ACETATE 667 MG CAP PO SCH ×2 (08:46→12:35)
[2019-05-15] MEDS: PANTOPRAZOLE 40 MG/10 ML VIAL INJ IV SCH (08:49)
[2019-05-15] MEDS: ASPirin 81 mg TAB PO SCH (08:49)
[2019-05-15 08:52] VITALS: BP 161/89
[2019-05-15] MEDS: risperiDONE 1 MG TAB PO SCH (08:52)
[2019-05-15] MEDS: METOPROLOL TARTRATE 25 MG TAB PO SCH ×2 (08:53→12:14)
--- NOTE | 2019-05-15 09:49 | NUR ---
Called Tele Psy , spoke to Grecia regarding report has not been received, will fax in about 15-20 mins.
--- NOTE | 2019-05-15 10:35 | NUR ---
Patient refused dialysis.
[2019-05-15] MEDS: amLODIPine BESYLATE 5 MG TAB PO SCH (12:13)
[2019-05-15 13:06] VITALS: BP 164/102
[2019-05-15] MEDS: hydrALAZINE HCL 25 MG TAB PO SCH ×2 (13:20→13:25)
--- NOTE | 2019-05-15 13:26 | NUR ---
BP 164/102 HR 86, patient refused meds. Will continue to monitor.
--- NOTE | 2019-05-15 15:11 | NUR ---
Patient refused Tele. Will return to ICU.
--- NOTE | 2019-05-15 15:36 | NUR ---
Patient stated that doctor has release her, explained to the patient that there is no discharge and she can leave AMA , if she wishes. Signed: 05/15/19 at 1539 by EJ VILLA RN
--- NOTE | 2019-05-15 15:45 | NUR ---
Dr. Marcela Breen at bedside discuss with patient. Patient signed AMA form. Awaiting for a taxi voucher.
--- NOTE | 2019-05-15 16:55 | NUR ---
AMA Note ROBE VALLADARES states they want to leave the hospital Against Medical Advice (AMA). Patient encouraged to stay for further treatment/stabilization. Rajni Gary MD notified of patient's wishes. Patient advised of the risks and benefits of leaving AMA. Patient verbalized understanding. Patient encouraged to return to the ER if symptoms do not improve or worsen.
[2019-05-15] MEDS ORDERED: EPOETIN ALFA 10,000 UNIT/1 ML VIAL SC ONE (21:00)
[2019-05-17 14:20] LABS: Hepatitis A Ab IgM Negative
[2019-05-17 14:21] LABS: Hepatitis B Core IgM Negative; Hepatitis B Surface Antigen Negative (Negative)
[2019-05-17 14:24] LABS: Hepatitis C Antibody Negative (Negative)
== END 2019-05-15 15:45 | disposition left against medical advice (07) | DRG 470 ==
LOC: ER 20:35 → EDBD 20:35 → TELE 20:36 → TELE-WESTW 05-11 07:53 → ICU WEST 05-14 00:40 → TELE-WESTW 05-14 17:50
PROVIDERS: ADMIT Nurse Practitioner; ATTEND Internal Medicine
DX: I12.0 Hypertensive chronic kidney disease with stage 5 chronic kidney disease or end stage renal disease (principal); M32.14 Glomerular disease in systemic lupus erythematosus; E87.5 Hyperkalemia; F25.9 Schizoaffective disorder, unspecified; E87.70 Fluid overload, unspecified; N18.6 End stage renal disease; I16.1 Hypertensive emergency; D63.1 Anemia in chronic kidney disease; Z53.29 Procedure and treatment not carried out because of patient's decision for other reasons; F41.9 Anxiety disorder, unspecified; F32.9 Major depressive disorder, single episode, unspecified; Z91.14 Patient's other noncompliance with medication regimen; Z88.8 Allergy status to other drugs, medicaments and biological substances; Z99.2 Dependence on renal dialysis; Z91.19 Patient's noncompliance with other medical treatment and regimen; Z79.899 Other long term (current) drug therapy
CPT/HCPCS: 36415; 71045; 80048; 80053; 80074; 83021; 83880; 84484; 85025; 85660; 87081; 90935; 93306; 94640; C9113; G0378; J0610; J0885; J1642; J1815